=== PATIENT | male | born 1940 | race Caucasian/White ===

== ENCOUNTER 2018-01-30 18:51 | Emergency (ER) | payer MEDICARE, OTHER, SELFPAY ==
[2018-01-30 18:55] VITALS: BP 154/88; PULSE 83; RESP 18; TEMP 36.9; O2SAT 100
[2018-01-30] MEDS: TETANUS DIPHTHERIA TOXOIDS 0.5 ML VIAL IM (19:20)
[2018-01-30 19:25] LABS: Add Manual Diff / Slide Review NO; Basophils Percent Auto 0.3 % (0-2); Eosinophils Percent Auto 0.1 % (2-4); Hematocrit 51.1 % (41-53); Hemoglobin 17.2 g/dL (13.5-17.5); Lymphocytes Percent Auto 6.7 % (25-40); Mean Corpuscular HGB Conc 33.7 % (30-36); Mean Corpuscular Hemoglobin 30.7 PG (26-34); Mean Corpuscular Volume 91.1 fL (80-100); Monocytes Percent Auto 4.6 % (3-14); Neutrophils Absolute Auto 10500 /uL (3000-5900); Neutrophils Percent Auto 88.3 % (50-75); Platelet Count 158 X10^3/uL (150-400); Red Blood Cell Count 5.61 X10^6/uL (4.5-5.9); Red Cell Distribution Width 13.7 % (11.6-14.8); White Blood Cell Count 11.9 X10^3/uL (4.5-11.0)
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
[2018-01-30 19:36] VITALS: BP 150/81; PULSE 81; RESP 18; O2SAT 97
[2018-01-30 19:37] LABS: Alanine Aminotransferase 50 IU/L (21-72); Albumin 4.1 g/dL (3.5-5.0); Albumin Globulin Ratio 1.3 (1.0-2.8); Alkaline Phosphatase 72 U/L (38-126); Aspartate Aminotransferase 48 IU/L (17-59); Bilirubin Total 0.7 mg/dL (0.2-1.3); Blood Urea Nitrogen 25 mg/dL (9-20); Calcium 8.8 mg/dL (8.4-10.2); Carbon Dioxide 27 mmol/L (22-32); Chloride 107 mmol/L (98-107); Estimated Glomerular Filt Rate > 60.0 mL/min (>60); Globulin 3.1 g/dL (1.7-4.1); Glucose 79 mg/dL (80-110); HEMOLYSIS < 15 (0-50); Potassium 4.5 mmol/L (3.4-5.1); Sodium 145 mmol/L (137-145); Total Protein 7.2 g/dL (6.3-8.2)
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
[2018-01-30 20:49] VITALS: BP 138/52; PULSE 84; O2SAT 96
== END 2018-01-30 21:02 | disposition home or self-care (01) ==
PROVIDERS: Emergency Medicine; Emergency Provider Nurse Practitioner Family; PCP Family Medicine
DX: E86.0 Dehydration (principal); R19.7 Diarrhea, unspecified
CPT/HCPCS: 80053; 85025; 90471; 90714; 99282; 99284

== ENCOUNTER 2018-02-08 15:22 | Emergency (ER) | payer MEDICARE, OTHER, SELFPAY ==
[2018-02-08] VITALS (7 sets, daily range): BP systolic 138–168; BP diastolic 65–87; PULSE 63–68; RESP 12–18; TEMP 36.9; O2SAT 95–100; BMI 30.7
--- NOTE | 2018-02-08 15:35 | DI.RAD.S_ITS ---
PROCEDURE: XR CHEST 1V INDICATIONS: chest pain TECHNIQUE: One view of the chest was acquired. COMPARISON: None. FINDINGS: Surgical changes and devices: Sternotomy and CABG. Lungs and pleura: No pleural effusions or pneumothorax. Lungs are clear. Mediastinum: Mediastinal contours appear normal. Heart size is moderately increased. Bones and chest wall: No suspicious bony lesions. Overlying soft tissues appear unremarkable. IMPRESSION: Moderate cardiomegaly. Dictated by: Pro Lester M.D. on 02/08/2018 at 16:47 Approved by: Pro Lester M.D. on 02/08/2018 at 16:48
[2018-02-08 15:55] LABS: Add Manual Diff / Slide Review NO; Basophils Percent Auto 0.6 % (0-2); Eosinophils Percent Auto 1.8 % (2-4); Hematocrit 45.9 % (41-53); Hemoglobin 15.6 g/dL (13.5-17.5); Lymphocytes Percent Auto 25.3 % (25-40); Mean Corpuscular HGB Conc 33.9 % (30-36); Mean Corpuscular Hemoglobin 30.8 PG (26-34); Mean Corpuscular Volume 90.9 fL (80-100); Monocytes Percent Auto 10.5 % (3-14); Neutrophils Absolute Auto 3600 /uL (3000-5900); Neutrophils Percent Auto 61.8 % (50-75); Platelet Count 158 X10^3/uL (150-400); Red Blood Cell Count 5.05 X10^6/uL (4.5-5.9); Red Cell Distribution Width 13.4 % (11.6-14.8); White Blood Cell Count 5.9 X10^3/uL (4.5-11.0)
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
[2018-02-08 16:08] LABS: INR 1.1 (0.9-1.3); Prothrombin Time 12.4 SECONDS (10.1-12.7)
[2018-02-08 16:11] LABS: PTT Partial Thromboplastin Tim 30 SECONDS (26.4-36.2)
[2018-02-08 16:13] LABS: Alanine Aminotransferase 37 IU/L (21-72); Albumin 3.8 g/dL (3.5-5.0); Albumin Globulin Ratio 1.4 (1.0-2.8); Alkaline Phosphatase 59 U/L (38-126); Aspartate Aminotransferase 28 IU/L (17-59); BUN Creatinine Ratio 23.6 (6-22); Bilirubin Total 0.6 mg/dL (0.2-1.3); Blood Urea Nitrogen 26 mg/dL (9-20); Calcium 8.8 mg/dL (8.4-10.2); Carbon Dioxide 26 mmol/L (22-32); Chloride 105 mmol/L (98-107); Creatine Kinase 71 U/L (55-170); Estimated Glomerular Filt Rate > 60.0 mL/min (>60); Globulin 2.8 g/dL (1.7-4.1); Glucose 131 mg/dL (80-110); HEMOLYSIS < 15 (0-50); Lipase 63 U/L (23-300); Potassium 4.3 mmol/L (3.4-5.1); Sodium 141 mmol/L (137-145); Total Protein 6.6 g/dL (6.3-8.2)
[2018-02-08 16:28] LABS: Troponin I < 0.012 ng/mL (0.01-0.034)
[2018-02-08 19:20] LABS: Troponin I < 0.012 ng/mL (0.01-0.034)
== END 2018-02-08 19:48 | disposition home or self-care (01) ==
PROVIDERS: Emergency Provider Emergency Medicine; Family Provider Family Medicine; PCP Family Medicine; Referring Provider Internal Medicine Cardiovascular Disease
DX: R07.89 Other chest pain (principal)
CPT/HCPCS: 36591; 71045; 80053; 82550; 82553; 83690; 84484; 85025; 85610; 85730; 93005; 99283; 99285

== ENCOUNTER 2019-06-25 06:18 | Emergency (ER) | payer MEDICARE, OTHER, SELFPAY ==
--- NOTE | 2019-06-25 06:28 | DI.CT.S_ITS ---
PROCEDURE: CT HEAD/BRAIN WO CON INDICATIONS: Fall on Plavix, right occipital scalp laceration, with LOC TECHNIQUE: Noncontrast 4.5 mm thick angled axial sections acquired from the foramen magnum to the vertex, with coronal and sagittal reformats. For radiation dose reduction, the following was used: automated exposure control, adjustment of mA and/or kV according to patient size. COMPARISON: None. FINDINGS: Image quality: Excellent. CSF spaces: Basal cisterns are patent. No extra-axial fluid collections. The ventricles are symmetric in size and shape. Brain: No intracranial bleeds or masses. There is cerebral volume loss for age, with resultant ventricular and sulcal prominence. There are periventricular and deep white matter chronic small vessel ischemic changes. There is intracranial internal carotid artery atherosclerosis. Skull and face: A scalp laceration is seen involving the right parietal region, with subcutaneous gas. No underlying calvarial fracture is seen. Calvarium and visualized facial bones appear intact, without suspicious lesions. Sinuses: Visualized sinuses and mastoids are clear. IMPRESSION: No acute intracranial hemorrhage is seen. Right parietal scalp laceration. No displaced calvarial fracture can be seen. Note is made of age-appropriate brain parenchymal volume loss and chronic small vessel ischemic changes. Note: No significant discrepancy from the preliminary report. Dictated by: Pavan Bingham M.D. on 06/25/2019 at 6:28 Approved by: Pavan Bingham M.D. on 06/25/2019 at 6:29
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
[2019-06-25 06:31] VITALS: BP 181/100; PULSE 69; RESP 15; TEMP 36.7; O2SAT 99; BMI 29.5
[2019-06-25 06:46] LABS: Add Manual Diff / Slide Review NO; Basophils Absolute Auto 0 /uL (0-100); Basophils Percent Auto 0.6 % (0-2); Eosinophils Absolute Auto 300 /uL (0-450); Eosinophils Percent Auto 4.6 % (2-4); Hemoglobin 16.3 g/dL (13.5-17.5); Lymphocytes Absolute Auto 1300 /uL (1100-4500); Lymphocytes Percent Auto 18.3 % (25-40); Mean Corpuscular HGB Conc 33.9 % (30-36); Mean Corpuscular Hemoglobin 30.8 PG (26-34); Mean Corpuscular Volume 90.7 fL (80-100); Monocytes Absolute Auto 800 /uL (0-900); Monocytes Percent Auto 10.5 % (3-14); Neutrophils Absolute Auto 4800 /uL (1500-7000); Platelet Count 182 X10^3/uL (150-400); Red Blood Cell Count 5.29 X10^6/uL (4.5-5.9); Red Cell Distribution Width 13.4 % (11.6-14.8); White Blood Cell Count 7.3 X10^3/uL (4.5-11.0)
[2019-06-25 06:52] LABS: INR 1.1 (0.9-1.3); Prothrombin Time 12.7 SECONDS (10.1-12.7)
[2019-06-25 06:54] VITALS: BP 151/84; PULSE 62; RESP 16; O2SAT 98
[2019-06-25 06:54] LABS: PTT Partial Thromboplastin Tim 34 SECONDS (26.4-36.2)
[2019-06-25 06:56] LABS: Alanine Aminotransferase 89 IU/L (<50); Albumin 4.2 g/dL (3.5-5.0); Albumin Globulin Ratio 1.1 (1.0-2.8); Alkaline Phosphatase 176 U/L (38-126); Aspartate Aminotransferase 66 IU/L (17-59); BUN Creatinine Ratio 17.3 (6-22); Bilirubin Total 1.1 mg/dL (0.2-1.3); Blood Urea Nitrogen 19 mg/dL (9-20); Carbon Dioxide 29 mmol/L (22-32); Chloride 103 mmol/L (98-107); Estimated Glomerular Filt Rate > 60.0 mL/min (>60); Globulin 3.7 g/dL (1.7-4.1); Glucose 111 mg/dL (80-110); HEMOLYSIS < 15 (0-50); Potassium 4.1 mmol/L (3.4-5.1); Sodium 138 mmol/L (137-145); Total Protein 7.9 g/dL (6.3-8.2)
[2019-06-25 07:30] VITALS: BP 133/70; PULSE 64; RESP 14; O2SAT 94
== END 2019-06-25 08:09 | disposition home or self-care (01) ==
LOC: ED 07:56
PROVIDERS: Emergency Provider Emergency Medicine; PCP Internal Medicine
DX: R55 Syncope and collapse (principal); S01.01XA Laceration without foreign body of scalp, initial encounter; I10 Essential (primary) hypertension; E78.5 Hyperlipidemia, unspecified
CPT/HCPCS: 36415; 70450; 80053; 85025; 85610; 85730; 93005; 99283; 99285

== ENCOUNTER → 2019-08-17 10:25 | Outpatient (CLI) | payer MEDICARE, OTHER, SELFPAY ==
--- NOTE | 2019-08-17 | DI.CT.S_ITS ---
PROCEDURE: CT ABDOMEN PELVIS W CON INDICATIONS: Right upper quadrant pain TECHNIQUE: After the administration of oral and intravenous contrast, 5 mm thick sections acquired from the diaphragms to the symphysis. 5 mm thick coronal and sagittal reformats were performed. For radiation dose reduction, the following was used: automated exposure control, adjustment of mA and/or kV according to patient size. COMPARISON: None. FINDINGS: Image quality: Excellent. ABDOMEN: Lung bases: Lung bases are clear. Heart size is normal. Solid organs: Liver is normal in size. There is an ill-defined hypodense focus within the right hepatic lobe posteriorly, spanning roughly 50 mm, with ill-defined peripheral enhancement. There are multiple scattered small subcentimeter indeterminate low-density foci throughout the right and left hepatic lobes. Hepatic contour is nodular. Gallbladder is within normal limits. Biliary system is non-dilated. Pancreas enhances normally. Spleen is normal in size and enhancement. No adrenal nodules. Partially exophytic cyst involves superior pole left kidney measuring 30 mm diameter. Smaller right superior pole renal cyst is present measuring 13 mm. Kidneys are otherwise normal in size and enhancement, without hydronephrosis. Peritoneum and bowel: Stomach, small bowel, and colon loops are normal in caliber and wall thickness. No free fluid or air. Nodes and vessels: No retroperitoneal or mesenteric adenopathy. Aorta and inferior vena cava are normal in caliber. Miscellaneous: No ventral hernias. PELVIS: Genitourinary: Bladder wall thickness is normal. Miscellaneous: No inguinal hernias or adenopathy. Bones: No suspicious bony lesions. No vertebral body compression fractures. IMPRESSION: 1. Indeterminate low-density focus within the right hepatic lobe. Given the patient's history of right upper quadrant pain, if the patient demonstrates clinical and laboratory findings suggestive of infection, institution of appropriate antibiotic therapy is recommended. Regardless (especially given the patient's underlying cirrhosis), neoplasm should be excluded with followup liver protocol CT or MRI examination with and without intravenous contrast. 2. Multiple small indeterminate low density hepatic lesions; recommend attention to these regions on followup imaging studies. Dictated by: Florecita Jones M.D. on 08/17/2019 at 11:58 Approved by: Florecita Jones M.D. on 08/17/2019 at 12:07
== END ==
PROVIDERS: PCP Physician Assistant Medical; Visit Provider Physician Assistant Medical
DX: R10.11 Right upper quadrant pain (principal); K76.9 Liver disease, unspecified; N28.1 Cyst of kidney, acquired
CPT/HCPCS: 74177; Q9967

== ENCOUNTER → 2019-08-21 06:43 | Outpatient (CLI) | payer MEDICARE, OTHER, SELFPAY ==
--- NOTE | 2019-08-21 | DI.MRI.S_ITS ---
PROCEDURE: MR ABDOMEN WO/W CON INDICATIONS: LIVER MASS TECHNIQUE: Coronal HASTE, axial 2D FLASH in- and [id number]; axial breath-hold T2 FSE. Dynamic axial VIBE during the administration of contrast; post-contrast coronal VIBE or 2D FLASH with fat saturation from the hepatic dome to the iliac crests. Optional diffusion weighted imaging and ADC may be performed. COMPARISON: [facility], CR, XR CHEST 1V, 02/08/2018, 15:46. [facility], CT, CT ABDOMEN PELVIS W CON, 08/17/2019, 11:19. FINDINGS: Image quality: Excellent. Lung bases: No basal pleural effusions. Heart size is normal. Solid organs: Liver is normal in size but prominently abnormal in enhancement. The recent prior CT of the abdomen/pelvis identifying a dominant mass lesions within the right posterior hepatic segment underestimates the extent of disease. The liver appears to contain innumerable small nodules best seen on diffusion imaging pulse sequence series 24, example image 62. The appearance is most likely a manifestation of extensive hepatic metastatic disease. The dominant nodule again is seen at the right posterior hepatic segment measuring up to 4.1 cm AP and 5.6 cm transverse but the liver parenchyma contains a large number of additional lesions, ranging in size from 5 mm to 2.5 cm in addition to the previously identified lesion. These masses are nonspecific, and several demonstrate peripheral capsular enhancement, but on dynamic contrast imaging did not show evidence of rapid contrast washout, or centripetal enhancement. Note is made of what appears to be a slight degree of nodular capsular irregularity along the right anterior and left anterior hepatic capsular margin but this may represent underlying masses rather than definite evidence of cirrhosis. Splenomegaly and varices are not present.. Gallbladder appears normal. Biliary system is non dilated. Pancreas is normal in morphology. Spleen is normal in size and enhancement. No adrenal nodules. Both kidneys demonstrate normal size and enhancement, without hydronephrosis. Nodes and vessels: No retroperitoneal or mesenteric adenopathy by size criteria. Aorta and inferior vena cava are normal in size. Bowel and peritoneum: Unenhanced bowel loops are normal in caliber. No free fluid. Bones and soft tissues: No ventral hernias. Bone marrow is normal in overall signal. IMPRESSION: A dominant previously identified hepatic mass lesion measuring 5.6 cm in maximal axial dimension is again seen but there also is a finding of innumerable hepatic parenchymal lesions ranging from 5 mm to 2.5 cm elsewhere, inapparent suggestive of extensive hepatic metastatic disease. It is noted that a chest plain film or CT has not been obtained recently. That would be recommended. Also, hepatic ultrasound as a target a single organs study is recommended to determine whether ultrasound can't accurately identify lesions within the liver parenchyma. Dictated by: Tommy Domingo M.D. on 08/21/2019 at 8:29 Approved by: Tommy Domingo M.D. on 08/21/2019 at 8:46
== END ==
PROVIDERS: PCP Physician Assistant Medical; Visit Provider Physician Assistant Medical
DX: K76.9 Liver disease, unspecified (principal)
CPT/HCPCS: 74183

== ENCOUNTER → 2019-08-22 10:29 | Outpatient (CLI) | payer MEDICARE, OTHER, SELFPAY ==
--- NOTE | 2019-08-22 | DI.CT.S_ITS ---
PROCEDURE: CT CHEST W CON INDICATIONS: LIVER MASS ABNORMAL WEIGHT LOSS TECHNIQUE: After the administration of intravenous contrast, 5 mm thick sections acquired from the pulmonary apices to the posterior costophrenic angles. 1 mm axial lung, 5 mm thick coronal and sagittal reformats and 7 mm axial MIP were acquired. For radiation dose reduction, the following was used: automated exposure control, adjustment of mA and/or kV according to patient size. COMPARISON: [facility], MR, MR ABDOMEN WO/W CON, 08/21/2019, 7:06. [facility], CT, CT ABDOMEN PELVIS W CON, 08/17/2019, 11:19. FINDINGS: Image quality: Excellent. Lungs and pleura: Scattered subsegmental atelectasis and/or scarring. No focal consolidation. 3 mm nodule in the left lung base on image 209/3, indeterminate No pleural effusions or pneumothorax. Central and peripheral airways are patent and normal in caliber. Mediastinum: Heart size is normal. Coronary artery disease. No pericardial effusion. No mediastinal or hilar adenopathy by size criteria. Thoracic aorta and central pulmonary arteries are normal in size. Esophagus is normal in caliber. No hiatal hernia. Bones and chest wall: No suspicious bony lesions. No vertebral body compression fractures. No axillary or supraclavicular adenopathy by size criteria. Thyroid gland unremarkable. Previously described multiple hepatic mass lesions are again noted and only partially visualized. Please see recent MRI abdomen dated yesterday. Micronodular contour of the liver in keeping with cirrhosis IMPRESSION: 3 mm left lower lobe nodule, technically indeterminate in the absence of more remote comparison studies. Recommend attention to this finding on future surveillance studies. Multiple hepatic masses as previously described Dictated by: Morgan Jones M.D. on 08/22/2019 at 12:55 Approved by: Morgan Jones M.D. on 08/22/2019 at 13:00
--- NOTE | 2019-08-22 | DI.US.S_ITS ---
PROCEDURE: US ABDOMEN LIMITED INDICATIONS: LIVER MASS ABNORMAL WEIGHT LOSS TECHNIQUE: Real-time focused scanning was performed of the abdomen, with image documentation. COMPARISON: [facility], MR, MR ABDOMEN WO/W CON, 08/21/2019, 7:06. [facility], CT, CT ABDOMEN PELVIS W CON, 08/17/2019, 11:19. FINDINGS: There is a hypoechoic liver she lesion seen within the posterior right lobe of the liver that measures 7.3 x 5.1 x 5.1 cm. The liver itself demonstrates normal size, yet in series diffuse heterogeneity. The main portal vein is demonstrated to be patent. IMPRESSION: There is a suspicious 7.3 cm mass seen within the right posterior lobe of the liver. The liver demonstrates diffuse heterogeneity, which is similar in appearance to the prior MRI and suspicious for multiple liver masses. Extensive metastatic disease is suspected. Dictated by: Pavan Bingham M.D. on 08/22/2019 at 14:25 Approved by: Pavan Bingham M.D. on 08/22/2019 at 14:28
== END ==
PROVIDERS: PCP Physician Assistant Medical; Visit Provider Physician Assistant Medical
DX: K76.9 Liver disease, unspecified (principal); R63.4 Abnormal weight loss; R91.1 Solitary pulmonary nodule; I25.10 Atherosclerotic heart disease of native coronary artery without angina pectoris
CPT/HCPCS: 71260; 76705; Q9967

== ENCOUNTER 2019-09-01 09:50 | Outpatient (CLI) | payer MEDICARE, OTHER, SELFPAY ==
[2019-09-01] VITALS (12 sets, daily range): BP systolic 105–155; BP diastolic 51–83; PULSE 64–95; RESP 14–20; TEMP 36.4–36.9; O2SAT 94–100; BMI 27.2
--- NOTE | 2019-09-01 | PATH_ITS ---
[facility] Accession Number: [id number] . 01 Material submitted: . liver - RIGHT LOBE LIVER . 01 Clinical history: . SUSPECT MALIGNANCY POSSIBLE METS. . 02 Diagnosis: Right Lobe Liver, Core Needle Biopsy: Metastatic melanoma. Please see commment. [facility] 09/05/2019 1717 Local . 02 Comment: As part of routine air quality manager, Dr. Pathak also reviewed this case and agrees with the diagnosis. Dr. Samson gave preliminary results of poorly differentiated malignant neoplasm to Dr. Grigsby and to Emi in Dr. Rivera's office on 09/04/2019. BRAF molecular testing can be performed upon request, if clinically indicated. . 02 Electronically signed: . Tania Samson MD, Pathologist NPI- [id number] . 01 Gross description: . RIGHT LOBE LIVER: Received in formalin are multiple fragment(s) of medeiros, soft tissue measuring 0.1 x 0.1 x 0.1 cm to 0.7 x 0.1 x 0.1 cm submitted entirely in 1 [facility] [place]01/[place] 2046 Local . 02 Microscopic: . Immunohistochemical stains were performed to characterize the cells of interest. All control stains showed appropriate reactivity. . Results: SOX10: Uniformly positive. HMB45: Uniformly positive. S100: Uniformly positive. Melan-A: Uniformly positive. EZEQUIEL: Negative. Chromogranin: Negative. Synaptophysin: Negative. Polyclonal CEA: Negative. CD10: Variable positive. Arginase: Negative. CK7: Negative, highlights bile ducts. CK20: Negative. . Interpretation: The immunophenotype is compatible with a metastatic melanoma. . . * This test was developed and its performance characteristics determined by [employer]. It has not been cleared or approved by the U.[place]. Food and Drug Administration. The FDA has determined that such clearance or approval is not necessary. This test is used for clinical purposes. It should not be regarded as investigational or for research. . 02 Pathologist provided ICD-10: C78.7 . 02 CPT . 577588, S91335, Z70215 Performed at: [facility] [address] [id number] MD Conrad Macias MD Phone: [phone] Performed at: [address] [id number] MD Tania Samson MD Phone: [phone]
--- NOTE | 2019-09-01 09:58 | DI.CT.S_ITS ---
PROCEDURE: CT BIOPSY LIVER Sedation analgesia for 30 minutes. INDICATIONS: Multiple liver masses. 2.3 cm anterior right lobe liver mass was targeted for biopsy. TECHNIQUE: The indications, alternatives, benefits, risks, and possible complications of the procedure were communicated to the patient. Informed written consent from the patient was obtained and placed in the chart. Continuous EKG and hemodynamic monitoring was started by trained personnel. The patient was brought to the CT suite and digital strategist senior manager spiral CT imaging was performed with localization grid. The appropriate site for percutaneous access to the biopsy target was marked, was prepped and draped sterilely, and was infused with local anaesthesia. Under CT guidance, a core biopsy trocar and needle set was advanced to the biopsy target, and specimen(s) were obtained. The trocar and needle were then removed, and the patient was sent for post-procedure monitoring. COMPARISON: None. FINDINGS: Biopsy site: Anterior right lobe liver lesion, segment V measuring 2.2 cm via an anterolateral approach. Needle: 20 gauge biopsy needle with a 19 gauge introducer trocar. Number of passes: 4 Medications: 1% lidocaine for local anaesthesia. IV Fentanyl and Versed for conscious sedation for 30 minutes (see nursing record). Complications: None. IMPRESSION: Successful CT-guided biopsy of 2.3 cm anterior right liver lobe lesion. Pathology is pending.. Dictated by: Florence Grigsby M.D. on 09/01/2019 at 16:36 Approved by: Florence Grigsby M.D. on 09/01/2019 at 16:44
[2019-09-01 11:08] LABS: Hematocrit 39.7 % (41-53); Platelet Count 231 X10^3/uL (150-400)
[2019-09-01 11:15] LABS: INR 1.3 (0.9-1.3); Prothrombin Time 15.5 SECONDS (10.1-12.7)
[2019-09-01] MEDS: MIDAZOLAM 2 MG/2 ML VIAL IV (11:57)
[2019-09-01] MEDS: fentaNYL 100 MCG/2 ML INJ IV (12:00)
[2019-09-01 16:08] LABS: Hematocrit 41.4 % (41-53)
--- NOTE | 2019-09-01 16:44 | SUR.PHASEII ---
Labs drawn and shown to Dr. Grigsby. Dr. Grigsby ion to see pt, pt able to go home, left when ready and left in stable condition.
== END 2019-09-01 16:44 | disposition home or self-care (01) ==
PROVIDERS: Radiology Diagnostic Radiology; PCP Physician Assistant Medical; Visit Provider Surgery
PROC: BF25ZZZ Computerized Tomography (CT Scan) of Liver (ICD-10-PCS; CPT 47000; principal; 2019-09-01 11:00)
DX: C78.7 Secondary malignant neoplasm of liver and intrahepatic bile duct (principal)
CPT/HCPCS: 36415; 47000; 77012; 85014; 85049; 85610; J2250; J3010